=== PATIENT | female | born 1990 | race Caucasian/White ===

== ENCOUNTER 2025-06-14 11:12 | Emergency (ER) | payer MEDICAID ==
[2025-06-14 11:40] LABS: BASOPHILS ABSOLUTE AUTO 0.0 x10-3/uL (0.0-0.1); BASOPHILS PERCENT AUTO 0.4 % (0.2-1.5); EOSINOPHILS ABSOLUTE AUTO 0.1 x10-3/uL (0.0-0.8); EOSINOPHILS PERCENT AUTO 0.6 % (0.6-8.1); LYMPHOCYTES ABSOLUTE AUTO 1.4 x10-3/uL (1.0-4.4); LYMPHOCYTES PERCENT AUTO 10.3 % (18.4-52.1); MEAN PLATELET VOLUME 10.0 fL (7.1-12.4); MONOCYTES ABSOLUTE AUTO 0.4 x10-3/uL (0.3-1.0); MONOCYTES PERCENT AUTO 2.9 % (4.4-15.7); NEUTROPHILS ABSOLUTE AUTO 11.4 x10-3/uL (1.5-6.3); NEUTROPHILS PERCENT AUTO 85.8 % (30.8-76.2); PLATELET COUNT,PLT 273 x10(3)uL (151-488); RED BLOOD CELL COUNT 4.19 x10(6)uL (3.60-5.20); RED CELL DISTRIBUTION WIDTH 14.7 % (12.3-16.5); WHITE BLOOD CELL COUNT,WBC 13.3 x10-3/uL (3.0-10.3)
[2025-06-14 11:48] LABS: A/G RATIO 0.6; ALANINE AMINOTRANSFERASE,ALT 13 U/L (12-36); ASPARTATE AMNIOTRANSFERASE,AST 16 IU/L (5-25); BILIRUBIN TOTAL 0.5 mg/dL (0.1-1.3); BLOOD UREA NITROGEN,BUN 9 mg/dL (7-18); CARBON DIOXIDE,CO2 20 mmol/L (21-32); CHLORIDE,CL 103 mmol/L (100-110); CREATININE 0.5 mg/dL (0.55-1.02); ESTIMATED GFR 128 mL/min (>60); GLUCOSE RANDOM 93 mg/dL (80-116); POTASSIUM,K 3.6 mmol/L (3.5-5.3); PROTEIN TOTAL,TP 6.8 g/dL (6.0-8.0); SODIUM,NA 136 mmol/L (135-145)
[2025-06-14 12:43] LABS: INFLUENZA A NAA NEGATIVE (NEGATIVE); INFLUENZA B NAA NEGATIVE (NEGATIVE); RESPIRATORY SYNCYTIAL VIR NAA NEGATIVE (NEGATIVE)
[2025-06-14 12:47] LABS: CORONAVIRUS COVID-19 NAA NEGATIVE (NEGATIVE)
[2025-06-14] MEDS: Oxytocin 10 Units/1 ML SDV IM ONE (13:41)
[2025-06-14] MEDS: Ondansetron 4 MG/2 ML SDV IVPUSH ONE (14:25)
[2025-06-14] MEDS: Ondansetron 4 MG/2 ML SDV ONE (14:29)
[2025-06-14] MEDS: Oxytocin 10 Units/1 ML SDV IV ONE (14:30)
[2025-06-15 18:58] LABS: HEPATITIS C AB CIA INTERP Negative (Negative); HEPATITIS C ANTIBODY CIA INDEX <0.02 IV
== END 2025-06-14 16:15 ==
LOC: FB.ED 11:12
DX: O70.3 Fourth degree perineal laceration during delivery (principal)
CPT/HCPCS: 36415; 59409; 80053; 85025; 86803; 86850; 86900; 86901; 87340; 87637; 88307; 96361; 96372; 96374; 96375; 99285; 99291; 99292; J2270; J2405; J2590; J7030